=== PATIENT | female | born 1970 | race Two or more races ===

== ENCOUNTER → 2022-11-17 08:41 | Outpatient (BNVA) | payer BC, SELFPAY | PROVIDERS: PCP Internal Medicine; Visit Provider Student in an Organized Health Care Education/Training Program | DX: Z13.89 Encounter for screening for other disorder (principal) ==

== ENCOUNTER 2022-11-17 09:32 | Outpatient (REF) | payer BC, SELFPAY ==
[2022-11-17 10:38] LABS: MANUAL DIFF FLAG NO
[2022-11-17 10:42] LABS: Basophils Percent Auto 0.5 % (0-2); Eosinophils Absolute Auto 0.1 X10*3/uL (0.0-0.4); Eosinophils Percent Auto 2.2 % (0-4); Hematocrit 39.9 % (37.0-47.0); Hemoglobin 12.5 g/dl (12.0-16.0); Imm Gran Abs Auto 0.02 X10*3/uL (0.00-0.03); Imm Gran Pct Auto 0.3 % (0.0-0.4); Lymphocytes Absolute Auto 2.2 X10*3/uL (1.2-4.9); Lymphocytes Percent Auto 36.4 % (20-40); Mean Corpuscular HGB Conc 31.3 g/dl (31.0-35.0); Mean Corpuscular Hemoglobin 28.7 pg (27.0-33.0); Mean Corpuscular Volume 91.7 fL (80.0-98.0); Mean Platelet Volume 10.7 fL (9.4-12.3); Monocytes Absolute Auto 0.4 X10*3/uL (0.1-1.2); Monocytes Percent Auto 6.8 % (2-11); Neutrophils Absolute Auto 3.2 x10*3/uL (2.0-8.3); Neutrophils Percent Auto 53.8 % (45-73); Platelet Count 270 X10*3/uL (160-400); Red Blood Count 4.35 X10*6/uL (4.20-5.50); Red Cell Distribution Width 13.9 % (11.0-16.0)
[2022-11-17 10:44] LABS: Appearance Urine Clear; Color Urine Yellow; Glucose Urine UA Negative (Negative); Leukocyte Esterase Urine Trace (Negative); Nitrite Urine Negative (Negative); UMIC TRIGGER UA YES; Urine Blood Negative (Negative); Urine Ketones Negative (Negative); Urine Protein Negative (Neg-Trace)
[2022-11-17 10:46] LABS: Bacteria Urine Trace (None Seen); Hyaline Casts Urine 0-2 /LPF (0-2); RBC Urine 0-2 /HPF (0-2); Squamous Epithelial Cell Urine 0-2 /HPF (0-2)
[2022-11-17 10:50] LABS: Alanine Aminotransferase 20 U/L (0-31); Albumin Level 4.1 g/dL (3.5-5.0); Alkaline Phosphatase 87 U/L (39-117); Anion Gap 11 (12-20); Aspartate Amino Transferase 23 U/L (5-31); Bilirubin Total 0.4 mg/dL (0.0-1.0); Blood Urea Nitrogen 18 mg/dL (9-16); C Reactive Protein < 0.10 mg/dL (< or = 0.50); Calcium 9.2 mg/dL (8.4-10.2); Carbon Dioxide 27 mmol/L (22-29); Chloride 108 mmol/L (96-108); Estimated Glomerular Filt Rate > 60; Glucose Random 86 mg/dL (60-115); Potassium 4.4 mmol/L (3.3-5.1); Sodium 142 mmol/L (135-145); Total Protein 6.6 g/dL (6.5-8.0)
[2022-11-17 11:16] LABS: HBS Num1 13.08 mIU/mL (0-7.99); HBc Num1 0.11 S/CO (0.00-0.79); HBsAGNum1 0.26 S/CO (0.00-0.99); Hepatitis A Antibody IgM 0.16 Index (0-0.79); Hepatitis B Core Antibody Nonreactive (Nonreactive); Hepatitis B Surface Antigen Negative (Negative); ~HepC Num1 0.08 S/CO (0.00-0.79); ~Hepatitis A Antibody IgM Nonreactive (Nonreactive); ~Hepatitis B Surface Antibody REACTIVE (Nonreactive); ~Hepatitis C Antibody Nonreactive (Nonreactive)
[2022-11-17 11:28] LABS: Creatinine Urine 104.38 mg/dL; Total Protein Urine Random < 7 mg/dL (<12)
[2022-11-17 11:33] LABS: Erythrocyte Sedimentation Rate 13 MM/HR (0-20)
[2022-11-19 13:38] LABS: Anti DNA DS Antibody 1 IU/mL; Antibody to SS-A Antigen <1.0 NEG AI (<1.0 NEG); Antibody to SS-B Antigen <1.0 NEG AI (<1.0 NEG); IgA 263 mg/dL (47-310); IgG 1019 mg/dL (600-1640); IgM 151 mg/dL (50-300); SM/Ribonucleoprotein Ab <1.0 NEG AI (<1.0 NEG); Smith Protein <1.0 NEG AI (<1.0 NEG)
[2022-11-19 15:42] LABS: Cyclic Citrullinated Peptide <16 UNITS
[2022-11-19 16:53] LABS: Complement C3 134 mg/dL (83-193)
[2022-11-19 22:28] LABS: Prot Elec - Albumin 4.2 g/dL (3.8-4.8); Prot Elec - Alpha1 0.3 g/dL (0.2-0.3); Prot Elec - Alpha2 0.7 g/dL (0.5-0.9); Prot Elec - Beta 1 0.5 g/dL (0.4-0.6); Prot Elec - Beta 2 0.4 g/dL (0.2-0.5); Prot Elec - Total Protein 6.9 g/dL (6.1-8.1)
[2022-11-25 14:33] LABS: DNAds, Crithidia Antibody Negative (Negative)
== END 2022-11-17 09:33 | disposition home or self-care (01) ==
LOC: HO.10HDL 09:32
PROVIDERS: Visit Provider Student in an Organized Health Care Education/Training Program
DX: Z11.59 Encounter for screening for other viral diseases (principal); M25.541 Pain in joints of right hand; M32.9 Systemic lupus erythematosus, unspecified; Z72.89 Other problems related to lifestyle
CPT/HCPCS: 36415; 80053; 81001; 82784; 84156; 84165; 85025; 85652; 86140; 86160; 86200; 86225; 86235; 86255; 86334; 86704; 86706; 86709; 86803; 87340

== ENCOUNTER 2023-02-17 08:04 | Outpatient (AMB) | payer BC, SELFPAY ==
[2023-02-17 08:07] VITALS: BP 107/60; PULSE 72; TEMP 36.2; BMI 28.2
--- NOTE | 2023-02-17 08:07 | MHC.OFFVIS ---
Intake Vital Signs 02/17/23 08:07 Height 5 ft 5 in Weight 169 lb 12.095 oz BMI 28.2 BP 107/60 Blood Pressure Location Rt brachial Position Sitting Pulse 72 Pulse Source Palpation Temp 97.2 F Temp Source Temporal Artery Scan Intake Visit Reasons: YANNI + Allergies nitrofurantoin Adverse Reaction (Unknown, Verified 11/17/22 08:49) Unknown Medication List - Last Reconciled 02/17/23 by Anurag Flores MD bupropion HCl 300 mg PO DAILY cetirizine (Zyrtec) 10 mg PO DAILY HPI HPI Comments History of Present Illness Details Patient returns for evaluation of a positive YANNI. After blood work has been completed. She is doing about the same overall. Denies any painful or swollen joints. Denies any skin rashes. Initial history: Year old female who presents for evaluation of positive YANNI. Back in July 2022 she had a UTI. She was prescribed Macrobid with resolution of her UTI symptoms. Two weeks later she was diagnosed with COVID. Symptoms of COVID resolved after few days however 3-4 days later she developed a diffuse itchy skin rash all over her body. The rash was raised and itchy. She was prescribed prednisone for 1 week with resolution of her rash. A few days later she developed pain and swelling of her fingers wrists bilaterally. She was admitted to the hospital and treated with NSAIDs and Tylenol, she was discharged home with eventual resolution of her symptoms in about 1 month. She also had brain fog, cognitive dysfunction and generalized fatigue. She denies any mouth ulcers. She states that she has been losing a substantial amount of hair over the last 3-4 months. There is no history of DVT/PE. No history suggestive of Raynaud's. No known family history of autoimmune rheumatic disease. Today patient feels well with no complaints except for hair loss. 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 Review of Systems Musc Denies arthralgias and Denies joint swelling Skin/Breast Denies rash Physical Exam Const General: cooperative, healthy appearing and comfortable Nutritional Appearance: overweight Orientation/consciousness: patient oriented x3 Limitations: no limitations HEENT Head: Yes normocephalic and Yes atraumatic Mouth: moist mucous membranes Resp Effort & Inspection: normal respiratory effort and able to speak in complete sentences Auscultation: clear to auscultation bilaterally Cardio Rate: regular rate Rhythm: regular rhythm Skin General skin exam: no rashes or lesions noted Neuro General: patient oriented x3 Extrem Other: No active synovitis. Normal nailfold capillaroscopy Results Reviewed Results Reviewed: Labs 08/23? CBC unremarkable? ESR 19? CRP negative? TSH 1.75? Vitamin-D 40? YANNI 1-80 speckled? RF negative CCP negative? 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 Back in early July 2022 she had a UTI which was treated with Macrobid, soon after she was diagnosed with COVID and symptoms resolved in a few days, few days later she had diffuse itchy skin rash treated with prednisone followed by multiple swollen and tender joints treated with NSAIDs and Tylenol, with resolution of those symptoms. Upon evaluation I do not see any signs of autoimmune rheumatic disease. Comprehensive serology is unremarkable. Follow-up as needed Coding Level of Care Code Est Pt Level 3 (21855) Diagnoses YANNI positive R76.8
== END 2023-02-17 08:18 | disposition home or self-care (01) ==
PROVIDERS: PCP Internal Medicine; Visit Provider Student in an Organized Health Care Education/Training Program
DX: R76.8 Other specified abnormal immunological findings in serum (principal)
CPT/HCPCS: 99213

== ENCOUNTER → 2023-02-17 08:04 | Outpatient (BNVA) | payer BC, SELFPAY | PROVIDERS: PCP Internal Medicine; Visit Provider Student in an Organized Health Care Education/Training Program ==

== ENCOUNTER → 2023-03-30 10:00 | Outpatient (BNV) | payer BC, SELFPAY | PROVIDERS: Visit Provider Psychiatry & Neurology Psychiatry | DX: F32.2 Major depressive disorder, single episode, severe without psychotic features (principal); F43.10 Post-traumatic stress disorder, unspecified | CPT/HCPCS: 90792; 99213 ==

== ENCOUNTER 2023-04-20 11:45 | Outpatient (RCR) | payer BC, SELFPAY ==
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
[2023-03-30 12:59] VITALS: BP 92/66; PULSE 80; TEMP 36.6
[2023-03-30 13:29] VITALS: BMI 29.3
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
--- NOTE | 2023-04-06 09:47 | HO.PHP ---
The clients case was reviewed and opened in treatment team 03/31/23
--- NOTE | 2023-04-07 10:42 | HO.PHPPROGNO ---
Subjective Subjective Reason For Visit: depression Diagnostics Vital Signs (24Hr): BMI result Body Mass Index 29.3 Assessment & Plan Certification I certify that partial hospital treatment is medically necessary due to the symptoms and problems resulting from the patient's mental illness and the failure to treat the patient at the partial hospital level of care would likely result in the patient requiring inpatient psychiatric care which could not be prevented at a less intensive level of care. Total time managing care of this patient today ____ minutes. Discharge Plan Discharge Attending provider: Sai Vaz Additional Instructions: Stopped cymbalta (03/30/23). Started Remeron 15mg 03/30/23. Continue Quetiapine 50mg bedtime and Hydroxyzine 25-50mg as needed and Zofran 4mg as needed three times per day Medications: New mirtazapine [Remeron] 15 mg tablet 15 mg PO BEDTIME 14 Days Qty: 14 0RF Continued bupropion HCl 300 mg tablet extended release 24 hr 300 mg PO DAILY Discontinued duloxetine 30 mg capsule,delayed release(DR/EC) 30 mg PO DAILY No Action hydroxyzine HCl 25 mg tablet 25 mg PO TID PRN (Reason: Anxiety) quetiapine 50 mg tablet 50 mg PO BEDTIME ondansetron HCl 4 mg tablet 4 mg PO Q8H PRN (Reason: Nausea) fluticasone propionate 50 mcg/actuation spray,suspension 1 spray intranasal BID
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
--- NOTE | 2023-04-11 14:06 | HO.PHP ---
Lydia requested a letter of verification for her DR as well as a informational packet detailing what the PHP program is.
--- NOTE | 2023-04-15 09:52 | P.PNPSP_ITS ---
Subjective Subjective Date of Service: 04/15/23 Reason For Visit: depression Interim History: Lydia is seen for follow-up. Off of the Remeron she is doing a little better. She is sleeping up to 5 hours with Seroquel 50 and hydroxyzine 25 and once she used 50 mg. She feels she is starting to get more depressed again and would like to go back on the Cymbalta at 30 mg. She will start with nighttime use and if it interferes with her sleeping which had done before she was switched to mor nings. She continues on Wellbutrin XL 300 mg. She is ending the program next week. No other changes Medication Compliance: Yes (Were made) Side effects from medications: No Attending Groups: Yes Review of Systems Review of Systems Some headaches and constipation for which she uses Colace which may be related to Seroquel and Zofran Yes all other systems are reviewed and are negative Mental Status Exam Mental Status Exam Narrative: In today's visit she is alert, oriented and pleasant. Normal speech. Little eye contact. Affect is appropriate and subdued. She is somewhat tearful. No signs of psychosis. Moderate depression present. No active SI. Cognitively is intact. Judgment is intact Diagnostics Vital Signs (24Hr): BMI result Body Mass Index 29.3 Assessment & Plan Assessment & Plan (1) Severe major depression: Status: Acute Code(s): F32.2 - Major depressive disorder, single episode, severe without psychotic features (2) PTSD (post-traumatic stress disorder): Status: Acute Code(s): F43.10 - Post-traumatic stress disorder, unspecified Plan Continue Wellbutrin, Seroquel, hydroxyzine and resume Cymbalta 30 mg. She will be seen by 1 of us before her discharge next week Patient educated on: medication risk/benefits Certification I certify that partial hospital treatment is medically necessary due to the symptoms and problems resulting from the patient's mental illness and the failure to treat the patient at the partial hospital level of care would likely result in the patient requiring inpatient psychiatric care which could not be prevented at a less intensive level of care. Total time managing care of this patient today ____ minutes. Discharge Plan Discharge Attending provider: Sai Vaz Additional Instructions: Stopped cymbalta (03/30/23). Started Remeron 15mg 03/30/23. Continue Quetiapine 50mg bedtime and Hydroxyzine 25-50mg as needed and Zofran 4mg as needed three times per day Medications: New mirtazapine [Remeron] 15 mg tablet 15 mg PO BEDTIME 14 Days Qty: 14 0RF Continued bupropion HCl 300 mg tablet extended release 24 hr 300 mg PO DAILY Discontinued duloxetine 30 mg capsule,delayed release(DR/EC) 30 mg PO DAILY No Action hydroxyzine HCl 25 mg tablet 25 mg PO TID PRN (Reason: Anxiety) quetiapine 50 mg tablet 50 mg PO BEDTIME ondansetron HCl 4 mg tablet 4 mg PO Q8H PRN (Reason: Nausea) fluticasone propionate 50 mcg/actuation spray,suspension 1 spray intranasal BID ondansetron 8 mg Tablet,Disintegrating 8 mg PO Q8H PRN (Reason: Nausea)
--- NOTE | 2023-04-20 11:52 | PC.NURSE ---
Reviewed patient discharge medication list with patient. She reports Mirtazapine was discontinued d/t side effects, feeling too groggy in the morning and Duloxetine 30 mg was restarted d/t increased depression. Patient stated she is tolerating the medications well. Patient also stated she needs a 2 week refill on the Duloxetine as she does not have an appointment with her prescriber [place] until May 04, 2023. Dr Reeder is aware.
--- NOTE | 2023-04-21 08:04 | HO.PHP ---
A message was left with the client therapist Hannah Olivo re clients discharge and progress made in PHP
== END 2023-04-20 23:59 | disposition home or self-care (01) ==
LOC: HO.PHPA 11:45
PROVIDERS: Visit Provider Psychiatry & Neurology Psychiatry
DX: F32.2 Major depressive disorder, single episode, severe without psychotic features (principal); F43.10 Post-traumatic stress disorder, unspecified; Z79.899 Other long term (current) drug therapy
CPT/HCPCS: 90791; 90853

== ENCOUNTER → 2023-10-26 13:15 | Outpatient (BNV) | payer BC, SELFPAY | PROVIDERS: Visit Provider Psychiatry & Neurology Psychiatry | DX: F34.89 Other specified persistent mood disorders (principal); F33.2 Major depressive disorder, recurrent severe without psychotic features; F06.8 Other specified mental disorders due to known physiological condition; S06.9X0S Unspecified intracranial injury without loss of consciousness, sequela; F41.1 Generalized anxiety disorder; F41.0 Panic disorder [episodic paroxysmal anxiety]; F43.10 Post-traumatic stress disorder, unspecified | CPT/HCPCS: 99213; 99499 ==

== ENCOUNTER 2023-10-27 09:04 | Outpatient (REF) | payer BC, SELFPAY ==
[2023-10-27 09:23] LABS: MANUAL DIFF FLAG NO
[2023-10-27 09:41] LABS: Basophils Percent Auto 0.3 % (0-2); Eosinophils Absolute Auto 0.2 X10*3/uL (0.0-0.4); Eosinophils Percent Auto 1.3 % (0-4); Hematocrit 43.4 % (37.0-47.0); Hemoglobin 14.1 g/dl (12.0-16.0); Imm Gran Abs Auto 0.04 X10*3/uL (0.00-0.03); Imm Gran Pct Auto 0.3 % (0.0-0.4); Lymphocytes Absolute Auto 2.5 X10*3/uL (1.2-4.9); Mean Corpuscular HGB Conc 32.5 g/dl (31.0-35.0); Mean Corpuscular Hemoglobin 28.6 pg (27.0-33.0); Monocytes Absolute Auto 0.7 X10*3/uL (0.1-1.2); Monocytes Percent Auto 6.5 % (2-11); Neutrophils Percent Auto 69.6 % (45-73); Platelet Count 291 X10*3/uL (160-400); Red Blood Count 4.93 X10*6/uL (4.20-5.50); Red Cell Distribution Width 13.2 % (11.0-16.0); White Blood Count 11.5 X10*3/uL (4.8-10.8)
[2023-10-27 09:57] LABS: Estimated Average Glucose 105 mg/dL; Hemoglobin A1c % 5.3 % (<6.0)
[2023-10-27 10:28] LABS: Alanine Aminotransferase 22 U/L (0-31); Albumin Level 4.4 g/dL (3.5-5.0); Alkaline Phosphatase 78 U/L (39-117); Anion Gap 12 (12-20); Aspartate Amino Transferase 26 U/L (5-31); Bilirubin Total 0.4 mg/dL (0.0-1.0); Blood Urea Nitrogen 16 mg/dL (9-16); Calcium 9.4 mg/dL (8.4-10.2); Carbon Dioxide 23 mmol/L (22-29); Chloride 109 mmol/L (96-108); Cholesterol 171 mg/dL (<200); Estimated Glomerular Filt Rate > 60; Glucose Random 100 mg/dL (60-115); HDL Cholesterol 47 mg/dL (>40); LDL Cholesterol Calculated 95 mg/dL (<100); Magnesium 2.3 mg/dL (1.6-2.6); Phosphorus 3.3 mg/dL (2.7-4.5); Potassium 4.3 mmol/L (3.3-5.1); Sodium 140 mmol/L (135-145); Total Protein 7.9 g/dL (6.5-8.0); Triglycerides 148 mg/dL (<150)
[2023-10-27 10:39] LABS: Free T4 (Free Thyroxine) 0.86 ng/dL (0.71-1.85); Thyroid Stimulating Hormone 1.64 uIU/mL (0.32-4.0)
[2023-10-27 12:05] LABS: Vitamin B12 818 pg/mL (200-900)
[2023-10-28 08:58] LABS: Prolactin 8.2 ng/mL; Triiodothyronine T3 Free 2.7 pg/mL (2.3-4.2); Triiodothyronine T3 Total 74 ng/dL (76-181)
== END 2023-10-27 09:05 | disposition home or self-care (01) ==
LOC: HO.LAB 09:04
PROVIDERS: Visit Provider Psychiatry & Neurology Psychiatry
DX: Z13.6 Encounter for screening for cardiovascular disorders (principal); F39 Unspecified mood [affective] disorder; F41.0 Panic disorder [episodic paroxysmal anxiety]; Z87.820 Personal history of traumatic brain injury
CPT/HCPCS: 36415; 80053; 80061; 82306; 82607; 83036; 83735; 84100; 84146; 84439; 84443; 84480; 84481; 85025

== ENCOUNTER 2023-11-04 13:00 | Outpatient (RCR) | payer BC, SELFPAY ==
[2023-10-14 10:59] VITALS: BMI 29.9
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
[2023-10-14 11:57] VITALS: BP 90/60; PULSE 80; TEMP 36.8
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
--- NOTE | 2023-10-20 09:18 | PC.NURSE ---
Lydia called out today. Stated she did not take her Trazodone last night thus did not sleep. She plans on taking Trazodone tonight and plans on being at the program tomorrow.
--- NOTE | 2023-10-20 14:40 | HO.PHP ---
Client's case opened and reviewed in team.
--- NOTE | 2023-10-20 15:22 | HO.PHP ---
Shotblaster called pt at 2:00 pm to check in and encourage pt to come in tomorrow since pt has been out for 2 days. Pt reports she will come in, states she felt she may be coming down with a cold and has been struggling to sleep which is affecting her anxiety. Pt expressed a strong desire to continue at [facility].
--- NOTE | 2023-10-21 13:41 | HO.PHP ---
PHP staff member met with Lydia after group 3 for about 40 minutes. PHP staff member followed up with Lydia around how she is doing. Lydia was tearful and talked about how she was triggered by an appointment on Tuesday with her neurologist, in which she mentioned something about returning to work. Lydia expressed that she distorted what she had said and thought she was saying you are going back tomorrow. Lydia voiced that she knows that isn't accurate but it made her very anxious. Lydia then expressed going into the what ifs. PHP staff member encouraged her to reframe her way of thinking so she does not get stuck in processing situations that aren't currently occurring. PHP staff member suggested that she explores something else to do after program opposed to going to bed so she does not get stuck in a negative cycle. 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 PHP staff validated Lydia's feelings and reminded her that she went through a traumatic event at her school. Lydia was receptive. Lydia disclosed that she is also going to go to her son's tonight and spend time with her grand dogs. PHP staff was receptive. PHP staff explored any safety concerns. Lydia expressed no concerns around SI, plan or intent. Lydia stated she will be in attendance to program Tuesday.
--- NOTE | 2023-10-25 21:38 | HO.PHPPROGNO ---
Subjective Subjective Date of Service: 10/25/23 Reason For Visit: depression Interim History: Patient seen for follow-up. Reports ongoing struggles with unstable mood, emotional incontinence, high emotional reactivity, cries easily and often, and feels she is not in control of her emotions. Always feeling uneasy, poor frustration tolerance, describes feeling scattered, forgetful, cognitive deficits that have not recovered since injury I used to excel in math, now I need a calculator for basic arithmatic . Describes getting easily frustrated by cognitive impairment; frustration leads to anger and emotional outbursts. She recognized that she is highly reactive to stressors, but unable to control this. Her family and providers feel she is just overreacting and they just tell me I'm overreacting, as if I dont know this. They dont understand . She in fact is aware that her reactions are unreasonable and are completely out of proportion to the problem, but feels extremely helpless and lacking any ability to manage herself. Upon further inquiry, she suspects that it is the cognitive impairment that leads to much of the lability, she is often reacting to situations or stressors that she feels she no longer is able to problem solve or navigate emotionally, often experiences panic attacks, a lot of anxiety. As a result she self-isolates, stays home and doesn't go out often because of the anxiety about not being able to manage herself. The isolation and helplessness lead to her to feeling hopeless and depressed. She denies any SI, but does question if life is worthwhile. She reviews presentation immediately proceeding the TBI, including struggling with sleep (initially hypersomnia - slept for 72 hours) loss of fluent language, calculation, NIADLs, couldnt drive, etc. She still suffers with slow cognitive tempo and also complains of poor concentration and focus I used to love reading (before injury) I can't read anymore . Increased emotionality with increased cognitive demands or tasks that require cognitive input. She is agreeable to starting on a mood stabilizer and we agreed to trial of Ablify to help with emotional disregulation and reviewed risk, benefit, side effects of medication. She is eager to start on metformin to help mitigate any potential weight gain (although has a better profile than other mood stabilizers in its class, there is still a reasonable risk, which patient feels she can not afford as she had already been in talks with her provider about initiating weight loss treatment. Ultimately she followed up with her provider and decided against semiglutide injection (citing concerns with her history of bypass surgery) and prefers starting on a daily oral medication which she has more control over. Mental Status Exam Mental Status Exam Narrative: Alert, oriented, in no acute distress. Calm, cooperative, engaged. No psychomotor agitation or neurovegetative retardation. Eye contact maintained. Mood depressed, affect dysthymic, with tearfulness, mild lability, no irritability. Speech normal. Thought process scattered, linear, coherent. Thought content related to stressors, executive dysfunction, feeling overwhelmed, some transient helplessness and hopelessness, denies SI, intention or plan. Denies any aggressive ideation. No paranoia or delusional content elicited. No evidence of psychosis. Insight and judgment fair but adequate. Diagnostics Vital Signs (24Hr): BMI result Body Mass Index 29.9 Assessment & Plan Assessment & Plan (1) Other specified persistent mood disorders: Status: Acute Code(s): F34.89 - Other specified persistent mood disorders (2) MDD (major depressive disorder), recurrent episode: Qualifiers: Major depression episode severity: severe Psychotic features: without psychotic features Qualified Code(s): F33.2 - Major depressive disorder, recurrent severe without psychotic features Status: Acute Code(s): F33.9 - Major depressive disorder, recurrent, unspecified (3) Cognitive deficit as late effect of traumatic brain injury: Status: Acute Code(s): F06.8 - Other specified mental disorders due to known physiological condition; S06.9X0S - Unspecified intracranial injury without loss of consciousness, sequela Assessment and Plan: cognitive deficit as neurological sequelae stemming from TBI +/- 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 stay Substantial Risk for: inability to function, rapid decompensation and med/psych decompensation Certification I certify that partial hospital treatment is medically necessary due to the symptoms and problems resulting from the patient's mental illness and the failure to treat the patient at the partial hospital level of care would likely result in the patient requiring inpatient psychiatric care which could not be prevented at a less intensive level of care. Total time managing care of this patient today __30__ minutes. Discharge Plan Discharge Attending provider: Silva Ochoa Medications: New buspirone 10 mg tablet 10 mg PO TID Qty: 30 0RF trazodone 100 mg tablet 150 mg PO BEDTIME PRN (Reason: sleep) Qty: 45 0RF metformin 500 mg tablet 250 mg PO BID Qty: 20 0RF aripiprazole 2 mg tablet 2 mg PO BEDTIME Qty: 14 0RF Continued cetirizine 10 mg Tablet 10 mg PO DAILY docusate sodium 100 mg Capsule 100 mg PO BID bisacodyl 5 mg Tablet,Delayed Release (Dr/Ec) 5 mg PO DAILY PRN (Reason: Constipation) cholecalciferol (vitamin D3) 50 mcg (2,000 unit) Tablet 50 mcg PO DAILY atorvastatin 10 mg Tablet 10 mg PO DAILY Patient Comments: New prescription, 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 polyethylene glycol 3350 17 gram Powder In Packet 17 g PO DAILY lorazepam 0.5 mg Tablet 0.5 mg PO DAILY PRN (Reason: Anxiety) Qty: 10 0RF melatonin 10 mg Tablet 10 mg PO BEDTIME Qty: 30 0RF bupropion HCl 300 mg tablet extended release 24 hr 300 mg PO DAILY Changed duloxetine [Cymbalta] 30 mg capsule,delayed release(DR/EC) 30 mg PO BID Qty: 30 0RF Rx Instructions: Once in the morning and once in the afternoon. Discontinued buspirone 5 mg Tablet 5 mg PO TID trazodone 150 mg Tablet 150 mg PO BEDTIME No Action ondansetron 8 mg Tablet,Disintegrating 8 mg PO Q8H PRN (Reason: Nausea) Stand Alone Forms: Patient Portal Discharge page
--- NOTE | 2023-10-27 16:08 | HO.PHP ---
At roughly 11:45 verse writer met with pt to discuss possibly extending her stay at [facility]. Pt reports she is still struggling with depression and is isolating and feeling hopeless (Pt denied SI). Pt will meet with doctor today to address medication changes. Pt expressed some of her concerns with verse writer, recieved support, appreciative for [facility]. Open to staying longer. New discharge date will be determined tomorrow.
--- NOTE | 2023-10-27 21:56 | HO.PHPPROGNO ---
Subjective Subjective Date of Service: 10/27/23 Reason For Visit: depression Interim History: Met with patient for follow-up. State she met with [facility], believes it would be helpful to extend her stay at [facility] I m still having problems with word recollection, retrieval, and dealing with these cognitive problems...still tricky She also had to wait for Ablify to be approved by her insurance so there was a delay starting on it, which she has and is at 1/2 tablet daily. Denies any adverse effects. She is willing to move up the a whole tablet. Transient hopelessness, denies any thoughts of harming self or others. She is hoping things get better with a mood stabilizer. Mental Status Exam Mental Status Exam Narrative: Alert, oriented, in no acute distress. Calm, cooperative, engaged. No psychomotor agitation or neurovegetative retardation. Eye contact maintained. Mood depressed, affect dysthymic, mild lability, no irritability or tearfulness. Speech normal. Thought process scattered, linear, coherent. Thought content related to stressors, executive dysfunction, feeling overwhelmed, some transient helplessness and hopelessness, denies SI, intention or plan. Denies any aggressive ideation. No paranoia or delusional content elicited. No evidence of psychosis. Insight and judgment fair but adequate. Diagnostics Vital Signs (24Hr): BMI result Body Mass Index 29.9 Assessment & Plan Assessment & Plan (1) MDD (major depressive disorder), recurrent episode: Qualifiers: Major depression episode severity: severe Psychotic features: without psychotic features Qualified Code(s): F33.2 - Major depressive disorder, recurrent severe without psychotic features Status: Acute Code(s): F33.9 - Major depressive disorder, recurrent, unspecified (2) Other specified persistent mood disorders: Status: Acute Code(s): F34.89 - Other specified persistent mood disorders (3) Cognitive deficit as late effect of traumatic brain injury: Status: Acute Code(s): F06.8 - Other specified mental disorders due to known physiological condition; S06.9X0S - Unspecified intracranial injury without loss of consciousness, sequela (4) PTSD (post-traumatic stress disorder): Status: Acute Code(s): F43.10 - Post-traumatic stress disorder, unspecified Plan increase Abilify to 2 mg qd continue metformin 250 mg BID continue Wellbutrin XL 300 mg qAM for now (alternatively may consider switching to SR formulation to help target cognition more) may consider trial of memantine OR modafinil vs methylphenidate, depending on whether we keep WB or d/c continue Buspar 10 mg TID will plan to titrate if stimulant started (or if anxiety not improved with memantine) other consideration for anxiety may include Intuniv decrease duloxetine from 30 mg BID to 20 mg BID continue melatonin 10 mg qhs continue to taper trazodone to 50 mg qhs PRN sleep (from 150) start guanfacine ER 1 mg qd in afternoon/evening continue lorazepam 0.5 mg qd PRN anxiety continue buspirone at 5 mg TID for now (hold off titrating to 10 mg totn lab slip give for routine lab work continue to monitor Patient educated on: diagnosis, medication risk/benefits and medical condition Informed Consent: understands Reason for contiued partial hosp. stay Substantial Risk for: inability to function and med/psych decompensation Certification I certify that partial hospital treatment is medically necessary due to the symptoms and problems resulting from the patient's mental illness and the failure to treat the patient at the partial hospital level of care would likely result in the patient requiring inpatient psychiatric care which could not be prevented at a less intensive level of care. Total time managing care of this patient today ___30_ minutes. Discharge Plan Discharge Attending provider: Silva Ochoa Medications: New zolpidem 5 mg tablet 5 mg PO BEDTIME PRN (Reason: insomnia) Qty: 30 0RF aripiprazole [Abilify] 5 mg tablet 5 mg PO BEDTIME Qty: 30 0RF fish oil-dha-epa 1,200-144-216 mg capsule 1 cap PO DAILY Qty: 30 0RF buspirone 7.5 mg tablet 7.5 mg PO TID 30 Days Qty: 90 0RF turmeric root extract [Curcuplex-95] 500 mg capsule 500 mg PO DAILY 30 Days Qty: 30 0RF memantine 14 mg capsule,sprinkle,ER 24hr 14 mg PO DAILY 30 Days Qty: 30 0RF Continued ondansetron 8 mg Tablet,Disintegrating 8 mg PO Q8H PRN (Reason: Nausea) cetirizine 10 mg Tablet 10 mg PO DAILY docusate sodium 100 mg Capsule 100 mg PO BID bisacodyl 5 mg Tablet,Delayed Release (Dr/Ec) 5 mg PO DAILY PRN (Reason: Constipation) cholecalciferol (vitamin D3) 50 mcg (2,000 unit) Tablet 50 mcg PO DAILY atorvastatin 10 mg Tablet 10 mg PO DAILY Patient Comments: New prescription, 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 polyethylene glycol 3350 17 gram Powder In Packet 17 g PO DAILY lorazepam 0.5 mg Tablet 0.5 mg PO DAILY PRN (Reason: Anxiety) Qty: 10 0RF melatonin 10 mg Tablet 10 mg PO BEDTIME Qty: 30 0RF metformin 500 mg tablet 250 mg PO BID Qty: 30 0RF Changed duloxetine 20 mg capsule,delayed release(DR/EC) 20 mg PO DAILY Qty: 30 0RF aripiprazole 2 mg tablet 2 mg PO QAM Qty: 30 0RF guanfacine 1 mg tablet extended release 24 hr 1 mg PO DAILY Qty: 30 0RF Discontinued duloxetine [Cymbalta] 30 mg capsule,delayed release(DR/EC) 30 mg PO BID Rx Instructions: Once in the morning and once in the afternoon. buspirone 5 mg Tablet 5 mg PO TID trazodone 150 mg Tablet 150 mg PO BEDTIME bupropion HCl 300 mg tablet extended release 24 hr 300 mg PO DAILY Stand Alone Forms: Patient Portal Discharge page Patient Education: Depression (DC) Print Language: Thai
--- NOTE | 2023-11-01 23:58 | HO.PHPPROGNO ---
Subjective Subjective Date of Service: 11/01/23 Reason For Visit: depression Interim History: Patient seen for follow-up regarding recent medication changes and to review lab work from last week. Patient started on Abilify, and is not sure yet but believes she is noticing feeling a little more regulated emotionally. She is not sure if this is a fluke. She notes her worse moments in the past few days are considerably better than she had been having. Still reportedly tearful, but less frequent and uncontrolled. I dont feel the other shoe is about to fall.... I was getting so much anxiety from that. She was able to reduce the Cymbalta from 30 bid to 20 mg BID and denies any adverse effects or withdrawal this time. She started the guanfacine ER yesterday, thus far no adverse effects. We will be slowly moving up on the ABilify to 3.5 mg. Hopefully we will be able to start moving down (and tapering off) the trazodone (given multiple drug-drug interactions). Medication Compliance: Yes Side effects from medications: No Attending Groups: Yes Review of Systems Acute medical concerns: No Mental Status Exam Mental Status Exam Narrative: Alert, oriented, in no acute distress. Calm, cooperative, engaged. No psychomotor agitation or neurovegetative retardation. Eye contact maintained. Mood depressed, affect dysthymic, with tearfulness, mild lability, no irritability. Speech normal. Thought process scattered, linear, coherent. Thought content related to stressors, executive dysfunction, feeling overwhelmed, some transient helplessness and hopelessness, denies SI, intention or plan. Denies any aggressive ideation. No paranoia or delusional content elicited. No evidence of psychosis. Insight and judgment fair but adequate. Diagnostics Vital Signs (24Hr): BMI result Body Mass Index 29.9 Assessment & Plan Assessment & Plan (1) MDD (major depressive disorder), recurrent episode: Qualifiers: Major depression episode severity: severe Psychotic features: without psychotic features Qualified Code(s): F33.2 - Major depressive disorder, recurrent severe without psychotic features Status: Acute Code(s): F33.9 - Major depressive disorder, recurrent, unspecified (2) Other specified persistent mood disorders: Status: Acute Code(s): F34.89 - Other specified persistent mood disorders (3) Cognitive deficit as late effect of traumatic brain injury: Status: Acute Code(s): F06.8 - Other specified mental disorders due to known physiological condition; S06.9X0S - Unspecified intracranial injury without loss of consciousness, sequela (4) PTSD (post-traumatic stress disorder): Status: Acute Code(s): F43.10 - Post-traumatic stress disorder, unspecified Plan Increase Abilify to 2.5 - 3 mg for 1 and 2 days, respectively, and then gradually up to 3.5 mg qd, as tolerated Duloxetine now down to 20 mg BID, without issue - may consider staying on this medication if cant tolerate further taper (or decide instead to discont WB) Continue Wellbutrin XL 300 mg qam for now (consider d/c due to multiple rx-rx interactions) (if taper off Wellbutrin) will plan to start modafinil (as cognitive enhancer). then would continue duloxetine for depression, anxiety in lieu of WB) Continue Buspar 10 mg TID will plan to titrate if stimulant started (or anxiety not improved w memantine), other considerations may include guanfacine er continue metformin 250 mg QD-BID Continue guanfacine ER 1 mg daily in evening (may start on AM dose once modafinil or methylphenidate in place) Continue trazodone at 100 mg (down from 150 mg) qhs PRN sleep, will plan to discontinue given multiple drug drug interx (guanfacine marginally helpful for sleep. After reviewing studies, will consider starting gabapentin 300 mg qhs, and low dose zolpidem as PRN sleep Continue melatonin 10 mg qhs (consider using episodically) Continue lorazepam 0.5 mg qd PRN anxiety (alternatively consider GBT 100 mg bid) Will discuss further with patient, potentially discontinuing trazodone, Wellbutrin, and possibly Buspar under-therapeutic at this time) to avoid polypharmacy Reviewed lab work with patient, she was also given print out of labwork from 10/27/23 consider obtaining baseline or current [facility] to have on file, ?ASRS continue to monitor Patient educated on: diagnosis, medication risk/benefits and substance abuse Informed Consent: understands Certification I certify that partial hospital treatment is medically necessary due to the symptoms and problems resulting from the patient's mental illness and the failure to treat the patient at the partial hospital level of care would likely result in the patient requiring inpatient psychiatric care which could not be prevented at a less intensive level of care. Total time managing care of this patient today __30__ minutes. Discharge Plan Discharge Attending provider: Silva Ochoa Medications: New buspirone 10 mg tablet 10 mg PO TID Qty: 30 0RF trazodone 100 mg tablet 150 mg PO BEDTIME PRN (Reason: sleep) Qty: 45 0RF metformin 500 mg tablet 250 mg PO BID Qty: 20 0RF aripiprazole 2 mg tablet 2 mg PO BEDTIME Qty: 14 0RF duloxetine 20 mg capsule,delayed release(DR/EC) 20 mg PO BID Qty: 30 0RF guanfacine 1 mg tablet extended release 24 hr 1 mg PO QPM Qty: 30 0RF Continued cetirizine 10 mg Tablet 10 mg PO DAILY docusate sodium 100 mg Capsule 100 mg PO BID bisacodyl 5 mg Tablet,Delayed Release (Dr/Ec) 5 mg PO DAILY PRN (Reason: Constipation) cholecalciferol (vitamin D3) 50 mcg (2,000 unit) Tablet 50 mcg PO DAILY atorvastatin 10 mg Tablet 10 mg PO DAILY Patient Comments: 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 polyethylene glycol 3350 17 gram Powder In Packet 17 g PO DAILY lorazepam 0.5 mg Tablet 0.5 mg PO DAILY PRN (Reason: Anxiety) Qty: 10 0RF melatonin 10 mg Tablet 10 mg PO BEDTIME Qty: 30 0RF bupropion HCl 300 mg tablet extended release 24 hr 300 mg PO DAILY Changed duloxetine [Cymbalta] 30 mg capsule,delayed release(DR/EC) 30 mg PO BID Qty: 30 0RF Rx Instructions: Once in the morning and once in the afternoon. Discontinued buspirone 5 mg Tablet 5 mg PO TID trazodone 150 mg Tablet 150 mg PO BEDTIME No Action ondansetron 8 mg Tablet,Disintegrating 8 mg PO Q8H PRN (Reason: Nausea) Stand Alone Forms: Patient Portal Discharge page Print Language: Hebrew
--- NOTE | 2023-11-04 22:58 | HO.PHPPROGNO ---
Subjective Subjective Date of Service: 11/04/23 Reason For Visit: depression Interim History: Patient seen for follow-up, anticipating discharge at the end of program today. Met with her psychologist Brandon Pitts in the interim, really the diagnostic impressions we had discussed, which her therapist said she did a good job explaining, nonetheless she thinks it would be helpful to have a letter from me that explains this. SHe has an upcoming appointment with her psych provider Wanda Esqueda. She has found Ambien to be helpful with sleep. Energy and appetite are improved. Overall feeling better. Medication compliant, medications well-tolerated. Denies any adverse effects.? Mood is stable.? Denies any hopelessness or SI. Denies thoughts of harming self or others at this time. Denies any aggressive ideation or HI. Denies any paranoia or AH or VH. No acute issues or concerns. Medication Compliance: Yes Side effects from medications: No Attending Groups: Yes Review of Systems Acute medical concerns: No Mental Status Exam Mental Status Exam Narrative: Alert, oriented, in no acute distress. Calm, cooperative, engaged. Eye contact maintained. Mood better , affect brighter, some anxiety, no lability, no irritability, no tearfulness. Speech normal. Thought process scattered, linear, coherent, more goal-directed. Thought content related to stressors, executive dysfunction, feeling overwhelmed, some transient helplessness and hopelessness, denies SI, intention or plan. Denies any aggressive ideation. No paranoia or delusional content elicited. No evidence of psychosis. Insight and judgment fair but adequate. Diagnostics Vital Signs (24Hr): BMI result Body Mass Index 29.9 Assessment & Plan Assessment & Plan (1) MDD (major depressive disorder), recurrent episode: Qualifiers: Major depression episode severity: severe Psychotic features: without psychotic features Qualified Code(s): F33.2 - Major depressive disorder, recurrent severe without psychotic features Status: Acute Code(s): F33.9 - Major depressive disorder, recurrent, unspecified (2) Other specified persistent mood disorders: Status: Acute Code(s): F34.89 - Other specified persistent mood disorders (3) Cognitive deficit as late effect of traumatic brain injury: Status: Acute Code(s): F06.8 - Other specified mental disorders due to known physiological condition; S06.9X0S - Unspecified intracranial injury without loss of consciousness, sequela (4) PTSD (post-traumatic stress disorder): Status: Acute Code(s): F43.10 - Post-traumatic stress disorder, unspecified Plan Discharge from [facility] Defer further medication management to OP psych provider (including additional considerations/recommendations) continue Abilify at 3.5 mg/day (split 1 mg AM/ 2.5 mg PM) continue Wellbutrin XL 300 mg qAM (alternatively could switch to modafinil 50-100, or modafinil/WB 150 combo - with OP provider) continue guanfacine ER 1 mg qAM continue duloxetine 20 mg qAM (may consider taper off - with OP provider, in order to reduce polypharmacy) continue buspirone 5 mg-7.5 mg TID continue memantine ER 7 mg qHS (may consider titration to 14 mg qhs, as tolerated - with OP provider) continue metformin 250 mg BID continue melatonin 10 mg qHS continue zolpidem 5 mg qhs PRN sleep trazodone discontinued (to reduce polypharmacy - given multiple drug-drug interactions w/ Abilify, duloxetine, bupropion, buspirone, guanfacine) alternatively consider gabapentin 300 mg qhs PRN alternative for sleep, anxiety, pain (especially if requiring higher doses of zolpidem)- with OP provider continue lorazepam 0.5 mg qd PRN anxiety (alternatively consider GBT 100 mg bid) continue vitamin D3 2000 IU qd start Curcuplex-95 (turmeric/curcumin) supplement 500 mg qd start [place] 3 DHA-EPA 1200 mg qd continue other regular medications: atorvastatin, bisacodyl, cetirizine, docusate, PRN ondansetron, PEG Reviewed lab work with patient, she was also given print out of labwork from 10/27/23 Recommend Neuropsych Assessment - referred to [facility] Recommend referral for Occupational Therapy Patient educated on: diagnosis, medication risk/benefits and medical condition Informed Consent: understands Reason for contiued partial hosp. stay Substantial Risk for: stable for discharge Certification I certify that partial hospital treatment is medically necessary due to the symptoms and problems resulting from the patient's mental illness and the failure to treat the patient at the partial hospital level of care would likely result in the patient requiring inpatient psychiatric care which could not be prevented at a less intensive level of care. Total time managing care of this patient today _40___ minutes. Discharge Plan Discharge Attending provider: Silva Ochoa Medications: New zolpidem 5 mg tablet 5 mg PO BEDTIME PRN (Reason: insomnia) Qty: 30 0RF aripiprazole [Abilify] 5 mg tablet 5 mg PO BEDTIME Qty: 30 0RF fish oil-dha-epa 1,200-144-216 mg capsule 1 cap PO DAILY Qty: 30 0RF buspirone 7.5 mg tablet 7.5 mg PO TID 30 Days Qty: 90 0RF turmeric root extract [Curcuplex-95] 500 mg capsule 500 mg PO DAILY 30 Days Qty: 30 0RF memantine 14 mg capsule,sprinkle,ER 24hr 14 mg PO DAILY 30 Days Qty: 30 0RF Continued ondansetron 8 mg Tablet,Disintegrating 8 mg PO Q8H PRN (Reason: Nausea) cetirizine 10 mg Tablet 10 mg PO DAILY docusate sodium 100 mg Capsule 100 mg PO BID bisacodyl 5 mg Tablet,Delayed Release (Dr/Ec) 5 mg PO DAILY PRN (Reason: Constipation) cholecalciferol (vitamin D3) 50 mcg (2,000 unit) Tablet 50 mcg PO DAILY atorvastatin 10 mg Tablet 10 mg PO DAILY Patient Comments: 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 polyethylene glycol 3350 17 gram Powder In Packet 17 g PO DAILY lorazepam 0.5 mg Tablet 0.5 mg PO DAILY PRN (Reason: Anxiety) Qty: 10 0RF melatonin 10 mg Tablet 10 mg PO BEDTIME Qty: 30 0RF metformin 500 mg tablet 250 mg PO BID Qty: 30 0RF Changed duloxetine 20 mg capsule,delayed release(DR/EC) 20 mg PO DAILY Qty: 30 0RF aripiprazole 2 mg tablet 2 mg PO QAM Qty: 30 0RF guanfacine 1 mg tablet extended release 24 hr 1 mg PO DAILY Qty: 30 0RF Discontinued duloxetine [Cymbalta] 30 mg capsule,delayed release(DR/EC) 30 mg PO BID Rx Instructions: Once in the morning and once in the afternoon. buspirone 5 mg Tablet 5 mg PO TID trazodone 150 mg Tablet 150 mg PO BEDTIME bupropion HCl 300 mg tablet extended release 24 hr 300 mg PO DAILY Stand Alone Forms: Patient Portal Discharge page Patient Education: Depression (DC) Print Language: [place] Citizen
== END 2023-11-04 23:59 | disposition home or self-care (01) ==
LOC: HO.PHPA 13:00
PROVIDERS: Visit Provider Psychiatry & Neurology Psychiatry
DX: F33.2 Major depressive disorder, recurrent severe without psychotic features (principal); F34.89 Other specified persistent mood disorders; F06.8 Other specified mental disorders due to known physiological condition; S06.9X0S Unspecified intracranial injury without loss of consciousness, sequela; F41.1 Generalized anxiety disorder; F41.0 Panic disorder [episodic paroxysmal anxiety]; F43.10 Post-traumatic stress disorder, unspecified; Z79.899 Other long term (current) drug therapy
CPT/HCPCS: 90791; 90853

== ENCOUNTER → 2024-08-31 08:15 | Outpatient (BNV) | payer BC, SELFPAY | PROVIDERS: Visit Provider Psychiatry & Neurology Psychiatry | DX: F33.2 Major depressive disorder, recurrent severe without psychotic features (principal); F43.10 Post-traumatic stress disorder, unspecified; F41.1 Generalized anxiety disorder; F41.0 Panic disorder [episodic paroxysmal anxiety] | CPT/HCPCS: 90792 ==

== ENCOUNTER 2024-09-18 09:00 | Outpatient (RCR) | payer BC, SELFPAY ==
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
[2024-08-31 11:39] VITALS: BP 88/64; PULSE 88; TEMP 37.2
[2024-08-31 11:42] VITALS: BMI 25.4
--- NOTE | 2024-09-06 15:09 | HO.PHP ---
Client's case has been opened and reviewed in team.
[2024-09-11 11:38] VITALS: BP 94/77; PULSE 79
--- NOTE | 2024-09-11 22:24 | HO.PHPPROGNO ---
Subjective Subjective Date of Service: 09/11/24 Reason For Visit: depression,anxiety Medication Compliance: Yes Side effects from medications: No Attending Groups: Yes Mental Status Exam Mental Status Exam Narrative: Pleasant. Engaged. Casual dress and presented. Organized and articulate. Mood is depressed and anxious. Intermittent thoughts of . No active SI. No HI or agitation. No psychosis. Insight and judgment good Diagnostics Vital Signs (24Hr): Vital Signs - 24 hr 09/11/24 11:38 Pulse Rate 79 Blood Pressure 94/77 BMI result Body Mass Index 25.4 Assessment & Plan Assessment & Plan (1) MDD (major depressive disorder), recurrent episode: Qualifiers: Major depression episode severity: severe Psychotic features: without psychotic features Qualified Code(s): F33.2 - Major depressive disorder, recurrent severe without psychotic features Status: Acute Code(s): F33.9 - Major depressive disorder, recurrent, unspecified (2) PTSD (post-traumatic stress disorder): Status: Acute Code(s): F43.10 - Post-traumatic stress disorder, unspecified (3) Generalized anxiety disorder with panic attacks: Status: Acute Code(s): F41.1 - Generalized anxiety disorder; F41.0 - Panic disorder [episodic paroxysmal anxiety] Plan Admit to [facility] VS reviewed Routine lab work ordered as indicated EKG, routine for baseline QTc for medication considerations as indicated UDS as indicated [facility] reviewed Continue to monitor as per protocol Med recs: Discontinue duloxetine and melatonin as no benefit, recently or in the past. Increase Abilify back to 7 mg total daily dose which was helpful in the past Changing guanfacine extended release to daytime for focus and concentration, which was previously effective in the past. Trial trazodone 75 mg and if this is not helpful or there are side effects, then utilize Ambien 5 mg at bedtime, which was very effective in the past. Risks and benefits discussed including potential for dependence. Will change Xanax to Ativan 0.5 mg which was effective during last partial hospital program, no evidence of misuse and also less addiction potential than Xanax. Prescription sent for Ambien, Ativan and Abilify 2 mg tablets to [facility] in [place]. Other long-term considerations could be reviewing buspirone dosing, discontinuing trazodone if not effective. Client also exploring an alternative prescriber continue off duloxetine (if w/d sx continue consider adding 20 mg q2days and gradual taper (vs fluox 10 to taper). Certification I certify that partial hospital treatment is medically necessary due to the symptoms and problems resulting from the patient's mental illness and the failure to treat the patient at the partial hospital level of care would likely result in the patient requiring inpatient psychiatric care which could not be prevented at a less intensive level of care. Total time managing care of this patient today ____ minutes. Discharge Plan Discharge Attending provider: Silva Ochoa Medications: New trazodone 50 mg tablet 75 mg PO BEDTIME Qty: 15 0RF memantine 7 mg capsule,sprinkle,ER 24hr 7 mg PO BEDTIME Qty: 14 0RF Continued aripiprazole [Abilify] 5 mg tablet 5 mg PO BEDTIME Qty: 30 0RF buspirone 7.5 mg tablet 7.5 mg PO TID 30 Days Qty: 90 0RF guanfacine 1 mg tablet extended release 24 hr 1 mg PO DAILY Qty: 30 0RF Patient Comments: Patient is now taking during the day per Dr. Wasserman. lorazepam 0.5 mg Tablet 0.5 mg PO DAILY PRN (Reason: Anxiety) Qty: 10 0RF zolpidem 5 mg tablet 5 mg PO BEDTIME PRN (Reason: insomnia) Qty: 14 0RF aripiprazole 2 mg tablet 2 mg PO QAM Qty: 30 0RF Discontinued melatonin 10 mg Tablet 10 mg PO BEDTIME Qty: 30 0RF duloxetine 20 mg capsule,delayed release(DR/EC) 20 mg PO DAILY Qty: 30 0RF memantine 14 mg capsule,sprinkle,ER 24hr 14 mg PO DAILY 30 Days Qty: 30 0RF No Action cetirizine 10 mg Tablet 10 mg PO DAILY cholecalciferol (vitamin D3) 50 mcg (2,000 unit) Tablet 50 mcg PO DAILY bupropion HCl [Wellbutrin XL] 300 mg Tablet Extended Release 24 Hr 300 mg PO QAM iron 18 mg Tablet 18 mg PO DAILY Fiber Gummies 2.5 gram Tablet,Chewable 20 g PO DAILY Print Language: Slovak
--- NOTE | 2024-09-18 12:04 | HO.PHPPROGNO ---
Subjective Subjective Date of Service: 09/18/24 Reason For Visit: depression,anxiety Diagnostics Vital Signs (24Hr): BMI result Body Mass Index 25.4 Assessment & Plan Certification I certify that partial hospital treatment is medically necessary due to the symptoms and problems resulting from the patient's mental illness and the failure to treat the patient at the partial hospital level of care would likely result in the patient requiring inpatient psychiatric care which could not be prevented at a less intensive level of care. Total time managing care of this patient today ____ minutes. Discharge Plan Discharge Attending provider: Silva Ochoa Medications: Continued cetirizine 10 mg Tablet 10 mg PO DAILY cholecalciferol (vitamin D3) 50 mcg (2,000 unit) Tablet 50 mcg PO DAILY aripiprazole [Abilify] 5 mg tablet 5 mg PO BEDTIME Qty: 30 0RF buspirone 7.5 mg tablet 7.5 mg PO TID 30 Days Qty: 90 0RF aripiprazole 2 mg tablet 2 mg PO QAM Qty: 30 0RF bupropion HCl [Wellbutrin XL] 300 mg Tablet Extended Release 24 Hr 300 mg PO QAM iron 18 mg Tablet 18 mg PO DAILY inulin 2.5 gram Tablet,Chewable 20 g PO DAILY memantine 7 mg capsule,sprinkle,ER 24hr 7 mg PO BEDTIME Qty: 90 0RF zolpidem 5 mg tablet 5 mg PO BEDTIME PRN (Reason: insomnia) Qty: 14 0RF Rx Instructions: may take up to 2-4 times a week for sleep (in place of trazodone) lorazepam 0.5 mg Tablet 0.5 mg PO DAILY PRN (Reason: Anxiety) Qty: 10 0RF Rx Instructions: limit to 3-4 times a week or less Changed trazodone 50 mg tablet 75 mg PO BEDTIME PRN (Reason: Sleep) Qty: 15 0RF Discontinued melatonin 10 mg Tablet 10 mg PO BEDTIME Qty: 30 0RF duloxetine 20 mg capsule,delayed release(DR/EC) 20 mg PO DAILY Qty: 30 0RF memantine 14 mg capsule,sprinkle,ER 24hr 14 mg PO DAILY 30 Days Qty: 30 0RF guanfacine 1 mg tablet extended release 24 hr 1 mg PO DAILY Qty: 30 0RF Patient Comments: Patient is now taking during the day per Dr. Wasserman. Patient Education: Mood Disorders (DC), Post Traumatic Stress Disorder (DC), Cognitive Disorders after Traumatic Brain Injury (DC), Anxiety (ED) Print Language: Vietnamese
== END 2024-09-18 23:59 | disposition home or self-care (01) ==
LOC: HO.PHPA 09:00
PROVIDERS: Visit Provider Psychiatry & Neurology Psychiatry
DX: F33.2 Major depressive disorder, recurrent severe without psychotic features (principal); F43.10 Post-traumatic stress disorder, unspecified; F41.1 Generalized anxiety disorder; F41.0 Panic disorder [episodic paroxysmal anxiety]; Z79.899 Other long term (current) drug therapy
CPT/HCPCS: 90791; 90853